=== PATIENT | male | born 1955 | race Caucasian/White ===

== ENCOUNTER → 2017-01-12 | Outpatient (CLI) | payer BC ==
[~2017-01-12] MED LIST: AMLODIPINE BESY10 MG PO; ASPIRIN325 PO; BENICAR HCT 401 EACH PO; COREG25 MG PO; FISH OIL 1,001000 M2 PO; KLOR-CON20 ME1 PO; MULTAQ400 MG PO; NIFEDICAL XL30 MG PO; PRADAXA150 MG PO; UNICOMPLEX M TA1 TA1 PO
--- NOTE | ~2017-01-12 | 2DMMODE ---
[facility] [id number] [place] [address] 2 D/M-MODE ECHOCARDIOGRAM Name: YADI HENRY Room #: REG [facility]#: [id number] Admission: 01/12/17 Attend Phys: Robinson Plummer Discharge: Date of : 53 Date of Service: 01/12/17 181 Report #: [id number] THIS REPORT FOR: //name// APPROVED REPORT Study performed: 01/12/2017 09:51:37 EXAM: Comprehensive 2D, Doppler, and color-flow Echocardiogram Patient Location: Out-Patient Status: routine Other Information Study Quality: Adequate Indications Pacemaker, Afib, HTN 2D Dimensions RVDd: 38.42 mm LVEF(%): 48.19 (>50%) IVSd: 11.19 (7-11mm) LVOT Diam: 22.37 (18-24mm) LVDd: 59.61 mm PWd: 9.57 (7-11mm) Ascending Ao: 39.17 (22-36mm) LVDs: 44.88 (25-40mm) Aortic Root: 40.98 mm Parikh's LVEF: 48.19 % Volumes Left Atrial Volume (Systole) Single Plane 4CH: 71.03 mL Single Plane 2CH: 76.58 mL Aortic Valve AoV Peak Alfie.: 1.05 m/s AO Peak Gr.: 4.44 mmHg LVOT Max P.04 mmHg LVOT Max V: 0.71 m/s DAVID Vmax: 2.65 cm2 Mitral Valve MV Decel. Time: 167.33 ms MV E Max Alfie.: 1.02 m/s IVRT: 84.20 ms Pulmonary Valve PV Peak Alfie.: 0.83 m/s PV Peak Gr.: 2.73 mmHg [facility] [place] [address] 2 D/M-MODE ECHOCARDIOGRAM Name: YADI HENRY ELIDA [id number] Admission: 01/12/17 Attend Phys: Robinson Plummer Discharge: Date of : 53 Date of Service: 01/12/17 1810 Report #: [id number] Tricuspid Valve TR Peak Alfie.: 2.22 m/s RAP Estimate: 5.00 mmHg TR Peak Gr.: 19.64 mmHg PA Pressure: 25.00 mmHg Left Ventricle Left ventricle is mildly dilated. Discordant inferior wall motion likely related to RV pacing. There is normal left ventricular wall thickness. Left ventricular systolic function is low normal. LVEF is 50%. This study is not technically sufficient to allow evaluation of the LV diastolic function due to atrial fibrillation. Right Ventricle The right ventricle is normal size. Right ventricular funtion is low normal. Pacemaker lead is present in the right ventricle. Atria Left atrium is dilated. The right atrium size is normal. Aortic Valve The aortic valve is trileaflet, mildly sclerotic. Trace aortic regurgitation. There is no aortic valvular stenosis. Mitral Valve The mitral valve is normal in structure. Mild mitral regurgitation. No evidence of mitral valve stenosis. Tricuspid Valve The tricuspid valve is normal in structure. There is trace tricuspid regurgitation. The right atrial pressure is estimated at 5 mmHg. Estimated PAP is 25mmHg. Pulmonic Valve The pulmonary valve is normal in structure. Mild pulmonic regurgitation. Great Vessels Aortic root is dilated at 4.1cm. The ascending aorta is mildly dilated at 3.9cm. IVC is normal in size and collapses >50% with inspiration. Pericardium There is no pericardial effusion. <Conclusion> Left ventricular systolic function is low normal. [address] [address] 2 D/M-MODE ECHOCARDIOGRAM Name: YADI HENRY ELIDA Room #: REG [facility]#: [id number] Admission: 01/12/17 Attend Phys: Robinson [facility] Dis[facility]: Date of : 53 Date of Service: 01/12/17 1810 Report #: [id number] Discordant inferior wall motion likely related to RV pacing. LVEF is 50%. Left atrium is dilated. The aortic valve is trileaflet, mildly sclerotic. Trace aortic regurgitation, no stenosis. The mitral valve is normal in structure. Mild mitral regurgitation. The ascending aorta is mildly dilated at 3.9cm. There is no pericardial effusion. <ELECTRONICALLY SIGNED> By: Dilip Fajardo MD, [facility] 01/12/171809 09 09 Dilip Fajardo MD, FAC /INF
== END ==
LOC: CV 10:24
DX: I10 Essential (primary) hypertension (principal); I48.91 Unspecified atrial fibrillation; I34.0 Nonrheumatic mitral (valve) insufficiency

== ENCOUNTER → 2017-01-16 | Outpatient (CLI) | payer BC ==
[~2017-01-16] VITALS: Ht 172.7 cm; Wt 106.6 kg
--- NOTE | ~2017-01-16 | CATHLAB ---
[facility] [address] [place] [address] INVASIVE PROCEDURE REPORT Name: YADI HENRY Room #: REG [facility]#: [id number] Admission: 01/16/17 Attend Phys: Robinson Plummer Discharge: Date of : 53 Date of Service: 01/16/17 1001 Report #: [id number] THIS REPORT FOR: //name// APPROVED REPORT Patient Location: Room #: Pacemaker Generator Exchange: History: The patient is a 62-year-old male with a history of pacemaker implantation for sick sinus syndrome whose device is currently at the elective replacement interval and is here for pacemaker generator exchange. Informed consent: The patient underwent informed consent were we discussed the details of the procedure including the risks which include but are not limited to bleeding infection and need for possible lead revisions. Anesthesia: The patient underwent sedation by the anesthesiology service with no complications. Procedure: The patient was brought to the EP laboratory in a fasting nonsedated state. She received IV antibiotics prior to the initiation of the procedure. Next I injected 10 mL of lidocaine at the prior incision site. An incision was made and the chronic pocket was entered. The old device was disconnected from the leads. The new device was connected to the pre-existing leads. The device was tested and found to be functioning normally. The pocket was then closed in 3 layers and surgical glue was placed and the outer skin layer. There was no complications or significant bleeding. The patient awoke neurologically and hemodynamically intact. Device: The pacemaker generator that was removed was a Medtronic serial number [id number] which was originally implanted on September 05, 2008. The newly implanted generator was a [employer] medical model number PM 2240 serial number [id number]. The atrial lead was a Medtronic model #5076 serial number [id number] in the right ventricular lead was a Medtronic model #4074 serial number [id number]. The atrial lead demonstrated a P wave of 4.2 mV with a pacing impedance of 450 ohms and a pacing threshold of 0.75 V at 0.4 ms. The RV lead demonstrated an R-wave of 6.6 mV with a pacing impedance of 550 ohms and a pacing threshold of 1 V at 0.4 ms. The pacemaker was programmed to the DDDR 60 to 130 mode. [facility] [place] [address] INVASIVE PROCEDURE REPORT Name: YADI HENRY Room #: REG [facility]#: [id number] Admission: 01/16/17 Attend Phys: Robinson Plummer Discharge: Date of : 53 Date of Service: 01/16/17 1001 Report #: [id number] Conclusion: 1. Successful pacemaker generator exchange. 2. Satisfactory atrial and right ventricular pacing and sensing thresholds. Conclusion <ELECTRONICALLY SIGNED> By: Robinson Plummer MD 01/16/17 1001 1001 1001 Robinson Plummer MD /INF
[2017-01-16 07:11] VITALS: BP 133/84
[2017-01-16 07:32] LABS: ABSOLUTE NEUTROPHILS 2.5 thou/uL (1.4-8.2); BASOPHILS 0.8 % (0.0-2.0); EOSINOPHILS 2.7 % (0.0-3.0); HEMATOCRIT 43.4 % (42.0-52.0); HEMOGLOBIN 15.1 gm/dL (14.0-18.0); LYMPHOCYTES 33.3 % (24.0-44.0); MCH 30.3 pg (26.0-34.0); MCHC 34.8 g/dL (28.0-37.0); MONOCYTES 9.1 % (1.0-8.0); PLATELET COUNT 169 thou/uL (150-400); POLYS 54.1 % (36.0-66.0); RBC 4.99 mil/uL (4.50-6.00); RDW 13.9 % (10.5-14.5); WBC 4.6 thou/uL (4.0-11.0)
[2017-01-16 07:37] LABS: MANUAL DIFF NO
[2017-01-16 07:39] LABS: CALCIUM 8.9 mg/dL (8.5-10.1); CREATININE 1.3 mg/dL (0.7-1.3); POTASSIUM 3.7 mmol/L (3.5-5.1)
[2017-01-16 07:45] LABS: ALBUMIN 3.9 g/dL (3.4-5.0); TOTAL BILIRUBIN 0.7 mg/dL (<0.1-1.0); TOTAL PROTEIN 6.9 g/dL (6.4-8.2)
[2017-01-16 07:48] LABS: APTT 25.4 Seconds (24.5-32.8); INR 1.1; PROTIME 11.1 Seconds (9.3-11.4)
== END | disposition home or self-care (01) ==
LOC: CATH 06:34
PROVIDERS: Internal Medicine Cardiovascular Disease
DX: Z45.010 Encounter for checking and testing of cardiac pacemaker pulse generator [battery] (principal); I49.5 Sick sinus syndrome
CPT/HCPCS: 62110; 62900; 70005

== ENCOUNTER → 2020-04-30 | Outpatient (CLI) | payer OTHER | LOC: SJCVCIMAG 08:51 | PROVIDERS: ATTEND Internal Medicine Cardiovascular Disease | DX: R94.31 Abnormal electrocardiogram [ECG] [EKG] (principal); I45.10 Unspecified right bundle-branch block; I49.5 Sick sinus syndrome; I48.92 Unspecified atrial flutter; I48.0 Paroxysmal atrial fibrillation; Z95.0 Presence of cardiac pacemaker; Z79.82 Long term (current) use of aspirin; Z79.899 Other long term (current) drug therapy ==

== ENCOUNTER → 2020-05-11 | Outpatient (CLI) | payer OTHER | LOC: RAD 08:58 | PROVIDERS: ATTEND Internal Medicine Cardiovascular Disease | DX: Z13.6 Encounter for screening for cardiovascular disorders (principal); I25.10 Atherosclerotic heart disease of native coronary artery without angina pectoris; E78.00 Pure hypercholesterolemia, unspecified ==

== ENCOUNTER → 2020-06-09 | Outpatient (CLI) | payer OTHER | LOC: SJCVCIMAG 08:25 | PROVIDERS: ATTEND Internal Medicine Cardiovascular Disease | DX: I48.91 Unspecified atrial fibrillation (principal); I44.0 Atrioventricular block, first degree; R93.1 Abnormal findings on diagnostic imaging of heart and coronary circulation; I10 Essential (primary) hypertension; Z95.0 Presence of cardiac pacemaker; Z79.82 Long term (current) use of aspirin; Z79.899 Other long term (current) drug therapy ==

== ENCOUNTER → 2020-06-16 | Outpatient (CLI) | payer OTHER | LOC: SJCVC 09:32 | PROVIDERS: ATTEND Internal Medicine Cardiovascular Disease | DX: R94.31 Abnormal electrocardiogram [ECG] [EKG] (principal); I49.5 Sick sinus syndrome; I48.91 Unspecified atrial fibrillation; R93.1 Abnormal findings on diagnostic imaging of heart and coronary circulation; I10 Essential (primary) hypertension; I48.92 Unspecified atrial flutter; I67.1 Cerebral aneurysm, nonruptured; Z95.0 Presence of cardiac pacemaker; Z79.82 Long term (current) use of aspirin; Z79.899 Other long term (current) drug therapy ==

== ENCOUNTER → 2020-12-29 | Outpatient (CLI) | payer OTHER | LOC: SJCVC 09:28 | PROVIDERS: ATTEND Internal Medicine Cardiovascular Disease | DX: I44.0 Atrioventricular block, first degree (principal); I49.5 Sick sinus syndrome; I48.91 Unspecified atrial fibrillation; E78.00 Pure hypercholesterolemia, unspecified; I10 Essential (primary) hypertension; Z95.0 Presence of cardiac pacemaker; Z79.82 Long term (current) use of aspirin; Z79.899 Other long term (current) drug therapy; Z88.1 Allergy status to other antibiotic agents; Z72.89 Other problems related to lifestyle ==